=== PATIENT | female | born 1925 | race Caucasian/White ===

== ENCOUNTER 2016-12-15 20:04 | Inpatient (IN) | payer MEDICARE, BC ==
--- NOTE | ~2016-12-15 | HP ---
Unit #: [id number] #: [id number] Patient: ZACHERY NOEL [id number] [address] [address] [id number] I MR#: [id number] NAME: ZACHERY NOEL. ROOM: 85921 Age: 89 Sex: F Admission Date: 12/15/2016 : 1925 Attending Physician: Sunshine Torres M.D. Primary Care Physician: Jaunita Rudd A.P.R.N. HISTORY AND PHYSICAL CHIEF COMPLAINT Abdominal pain. DISCUSSION This is an 89-year-old female with a past medical history of hypertension, dyslipidemia, osteoarthritis, osteoporosis, GERD, history of macular degeneration of eyes, legally blind, glaucoma. She presented to the emergency room with the chief complaint of diffuse abdominal pain. No nausea and no vomiting. No blood in the stool. She said pain started since yesterday. Got worse and she came to the ER. Initially on blood test she was found to have lipase 332, amylase 249, and also CT scan shows ileus with questionable small bowel resection. She had been eventually admitted. She denies fever, chills, cough, dysuria or any other complaints. PAST MEDICAL HISTORY 1. History of small bowel obstruction requiring partial colectomy in the past. 2. Hypertension. 3. Hyperlipidemia. 4. Osteoarthritis. 5. History of osteoporosis. 6. History of depression in the past. 7. History of GERD. 8. History of irritable bowel syndrome. 9. Bilateral macular degeneration of eyes. 10. Legally blind. PAST SURGICAL HISTORY 1. History of right distal ulnar fracture, status post repair. 2. History of colectomy in the past. 3. Tonsillectomy. 4. Cholecystectomy. 5. Appendectomy. 6. Hysterectomy. 7. History of excision of left labial cyst. 8. History of left total hip replacement. FAMILY HISTORY Noncontributory. SOCIAL HISTORY Lives by herself. Denies alcohol. Denies illicit drug use. Unit #: [id number] #: [id number] Patient: ZACHERY NOEL ALLERGIES No known drug allergy. MEDICATION FROM HOME 1. Nifedipine 30 mg daily. 2. Levothyroxine 50 mcg daily. 3. Amlodipine 5 mg daily. 4. Claritin eye drops at bedtime. REVIEW OF SYSTEMS All review of systems negative except for history of presenting illness. PHYSICAL EXAMINATION GENERAL: Elderly female lying in the bed comfortably, currently not in any distress. She is alert, awake, oriented x3 by very hard of hearing. VITAL SIGNS: His current vitals are following: Temperature 97.7, heart rate 102, respiratory rate 15, blood pressure 136/86, oxygen 98% on room air. HEENT: Pupils are equal, react to light and accommodation. Head is normocephalic, atraumatic. Extraocular muscles are intact. NECK: Supple. No JVD. HEART: S1, S2. 2/6 systolic murmur. Skipped beat. LUNGS: Clear to auscultation. ABDOMEN: Bowel sounds positive, diffuse tenderness positive. EXTREMITIES: To inspection normal. No cyanosis, no clubbing, no edema. NEUROLOGIC: No focal neurologic deficit. DIAGNOSTIC STUDIES LABORATORY STUDIES: UA has a cloudy appearance, (1) positive, WBC 10-25. Lactic acid level is 1.4. Chemistry - sodium 140, potassium 3.7, glucose 139, BUN 16, creatinine 0.9. LFT is within normal limits. Lipase 232, amylase 249. CBC - white count 8, hemoglobin 14, hematocrit 43, platelets 197. IMAGING STUDIES: CT scan shows questionable small bowel obstruction versus ileus. ASSESSMENT AND PLAN 1. Questionable small bowel obstruction versus ileus. She has a history of small bowel obstruction in the past. Will keep the patient NPO. IV fluid, morphine, IV Protonix. General surgery, LSA to evaluate. 2. UTI. Start patient on IV Rocephin. 3. Acute pancreatitis, elevated amylase and lipase. IV fluids and pain control. 4. Hypothyroid. 5. Hypertension. 6. Glaucoma, bilateral macular degeneration of eyes, legally blind. 7. Osteoarthritis. 8. History of osteoporosis. 9. History of hard of hearing. 10. Irritable bowel syndrome. 11. DVT prophylaxis. Will place the patient on Lovenox. Dictated by Sunshine Torres M.D. Unit #: [id number] #: [id number] Patient: ZACHERY NOEL Benito ST/magdiel TD: 12/16/2016 06:51 JOB #: [id number] HISTORY AND PHYSICAL Page 1 of 1 X X HISTORY AND PHYSICAL
--- NOTE | ~2016-12-15 | DS ---
Unit #: [id number] #: [id number] Patient: ZACHERY NOEL [id number] [facility]. [address] [address] [id number] I MR#: [id number] NAME: ZACHERY NOEL ROOM: 330 Age: 89 Sex: F Admission Date: 12/15/2016 : 1925 Discharge Date: 12/19/2016 Attending Physician: Karma Millan M.D. Primary Care Physician: Juanita Rudd A.P.R.N. DISCHARGE SUMMARY DIAGNOSIS ON ADMISSION Questionable small bowel obstruction. DIAGNOSES ON DISCHARGE 1. Resolving ileus. 2. Questionable gastroenteritis. 3. Hypertension. 4. Acute Escherichia coli urinary tract infection. 5. Dementia. 6. Hypothyroidism. 7. Partial small bowel obstruction, resolved. DIAGNOSTIC STUDIES LABORATORY: Urine culture revealed E. coli urinary tract infection with greater than 100,000 colony count. The patient's creatinine was 0.5, sodium 140, potassium 3.7. WBC 4.2, hemoglobin 13.1, platelet count 154,000. IMAGING: Patient had CT scan of abdomen done on admission which revealed diffuse prominence of small bowel with scattered air fluid levels. This was nonspecific. Patient had abdominal series done today which revealed decrease in number of gas-filled diluted loops of small bowel with increasing amount of colonic gas suggesting improved or dissolved small bowel obstruction. HOSPITAL COURSE An 89-year-old female was admitted to the hospital with possible small bowel obstruction. Patient was seen by surgery in consultation, who thought that patient had likely ileus. They gradually advanced her diet and patient is tolerating it well. Acute urinary tract infection: The patient is treated with antibiotics and is on nitrofurantoin currently. Dementia: Patient is forgetful. She has increased agitation and has pulled out IV lines since yesterday. Questionable acute pancreatitis: Patient's amylase and lipase levels were elevated on admission but surgery thought that it was nonspecific and patient likely has ileus. Patient has been refusing lab work and pulling out her IVs. Therefore, repeat levels were not done. Today patient is comfortable, is not in any acute distress. Unit #: [id number] #: [id number] Patient: ZACHERY NOEL PHYSICAL EXAMINATION VITAL SIGNS: Reveal temperature of 99.6, pulse is 78 per minute, respiratory rate is 16 per minute, blood pressure is 143/98. HEENT: Revealed no conjunctival congestion. Sclerae is nonicteric. NECK: Supple. Trachea is central. RESPIRATORY: Revealed decreased breath sounds bilaterally. There are no wheezes or crackles. HEART: Regular rate and rhythm. S1, S2. ABDOMEN: Soft, nontender. Bowel sounds are present in all four quadrants. PSYCHIATRIC: Patient is alert to person only. SKIN: Warm and dry. RECOMMENDATIONS ON DISCHARGE Condition stable. Activity as tolerated. MEDICATIONS 1. Imodium 2 mg p.o. q.4 hours p.r.n. for diarrhea. 2. Norvasc 5 mg p.o. daily. 3. Procardia XL 30 mg p.o. daily. 4. Travatan eye drops. 5. Synthroid 50 mcg p.o. daily. 6. Nitrofurantoin 100 mg p.o. b.i.d. for four days. FOLLOWUP Followup with the physician at the facility. Kindly repeat patient's CBC and BMP in one to two days. The patient is agitated and is at high risk for falls. The plan was discussed in detail with patient's daughter and son who stated that patient is not safe alone and they are looking into long-term care. They also stated that patient has diarrhea off and on and was using Lomotil at home. Dictated by... He Macias/rey TD: 12/19/2016 14:00 JOB #: [id number] DISCHARGE SUMMARY Page 1 of 1 X Karma Millan MD X DISCHARGE SUMMARY
--- NOTE | ~2016-12-15 | CT4 ---
[facility] A Service of [facility] RADIOLOGY TEXT RESULTS PATIENT: ZACHERY NOEL LOCATION: [facility] 330-01 : [birth year] UNIT #: [id number] AGE: [address]: Karma Millan MD SEX: F ORDER DR: [id number] [facility] [address] [facility]. [place], [place] [address] [id number] I MR#: [id number] Acc #: [id number] NAME: ZACHERY NOEL. : 1925 SEX: F STUDY DATE/TIME: 12/15/2016 22:21 UNIT: CEDOF ROOM: 96250 STUDY DESCRIPTION: CT Abd and Pelv Wo Cont Attending Physician: Karma Millan M.D. Ordering Physician: Nia Rodriguez M.D. Primary Care Physician: Juanita Rudd A.P.R.N. MEDICAL IMAGING REPORT This report is preliminary unless electronic signature is present EXAM CT abdomen and pelvis without contrast INDICATION Bilateral lower quadrant abdominal pain since this morning. PROCEDURE Unenhanced CT of the abdomen and pelvis. This CT examination was performed with one or more of the following radiation dose reduction techniques: automatic exposure control, adjustment of mA and/or kV according to patient size, and iterative reconstruction. COMPARISON 03/24/2013. FINDINGS ABDOMEN WITHOUT CONTRAST: The included lung bases are clear. Previous cholecystectomy. There is persistent significant dilation of the intra- and extrahepatic bile ducts without evidence for obstructing mass or radiodense stone on this unenhanced study. Stable hepatic cysts. Spleen, adrenal glands, pancreas show no definite abnormality. Sigmoid diverticula without evidence for active complication. There is generalized prominence of small bowel loops with scattered air-fluid levels. No transition point is seen. The appearance was somewhat similar on the previous study. There is no organized abdominal fluid collection. Stable right renal calcifications. PELVIS WITHOUT CONTRAST: No pelvic mass. No aggressive appearing bone lesion. IMPRESSION [facility] A Service of [facility] RADIOLOGY TEXT RESULTS PATIENT: ZACHERY NOEL LOCATION: [facility] 330-01 : [birth year] UNIT #: [id number] AGE: [address]: Karma Millan MD SEX: F ORDER DR: 1. Diffuse prominence of the small bowel with scattered air-fluid levels. There is no discrete transition point seen. This is nonspecific. It could represent small bowel obstruction, but could also represent ileus. Correlate with patient's presenting symptoms. This could be followed with serial radiographs as desired clinically. 2. Other incidental findings detailed above are unchanged from the prior study. Dictated by... Shaka Rose M.D. THIS IS AN ELECTRONICALLY VERIFIED REPORT Shaka Rose M.D. at 12/19/2016 7:24 AM JORI/chloe TD: 12/16/2016 08:24 JOB #: [id number] MEDICAL IMAGING REPORT Page 1 of 1 COPY
--- NOTE | ~2016-12-15 | CR4 ---
[facility] A Service of [facility] RADIOLOGY TEXT RESULTS PATIENT: ZACHERY NOEL LOCATION: [facility] : [birth year] UNIT #: [id number] AGE: [address]: Karma Millan MD SEX: F ORDER DR: [id number] [facility] [address] [facility]. [place], [place] [address] [id number] I MR#: [id number] #: [id number] NAME: ZACHERY NOEL : 1925 SEX: F STUDY DATE/TIME: 12/19/2016901 UNIT: [address] ROOM: [facility] STUDY DESCRIPTION: CR Abdomen Flat Upright or Dec Attending Physician: Karma Millan M.D. Ordering Physician: Karma Millan M.D. Primary Care Physician: Juanita Rudd A.P.R.N. MEDICAL IMAGING REPORT This report is preliminary unless electronic signature is present EXAM Abdomen, supine and upright, 12/19/2016, 0902 hours. CLINICAL HISTORY Abdominal pain since admission to hospital on 12/15/2016. COMPARISON 12/17/2016 FINDINGS Supine and upright views demonstrate clear lung bases. There is no free air. There is gaseous distension of multiple loops of small bowel with definite colonic gas seen. The number of dilated small bowel loops has decreased and the amount of gas in the colon has increased suggesting improvement. IMPRESSION There is decrease in the number of gas-filled dilated loops of small bowel with increasing amount of colonic gas since 12/17/2016 suggesting improving or resolved small bowel obstruction. No free air seen. Dictated by... Yesica Patel M.D. THIS IS AN ELECTRONICALLY VERIFIED REPORT Yesica Patel M.D. at 12/19/2016 2:29 PM KARYN/malissa TD: 12/19/2016 11:01 JOB #: [id number] [facility] A Service of [facility] RADIOLOGY TEXT RESULTS PATIENT: ZACHERY NOEL LOCATION: [facility] 330-01 : [birth year] UNIT #: [id number] AGE: [address]: Karma Millan MD SEX: F ORDER DR: MEDICAL IMAGING REPORT Page 1 of 1 COPY
--- NOTE | ~2016-12-15 | EKG ---
PATIENT: ZACHERY NOEL UNIT #: [id number] Ventricular Rate: 81 BPM Atrial Rate: 81 BPM P-R Interval: 160 ms QRS Duration: 74 ms Q-T Interval: 352 ms QTC Calculation(Bezet): 408 ms P [place]: 87 degrees Calculated R [place]: -23 degrees Calculated T [place]: 35 degrees Diagnosis Line: Normal sinus rhythm Diagnosis Line: Cannot rule out Septal infarct , age undetermined Diagnosis Line: Borderline ECG Diagnosis Line: No previous ECGs available Diagnosis Line: Confirmed by MALA MOCTEZUMA MD ([id number]) on 12/22/2016 Diagnosis Line: 6:30:25 PM INTERPRETING MD: JOSE ELIAS GDUINO
--- NOTE | ~2016-12-15 | CO ---
Unit #: [id number] #: [id number] Patient: ZACHERY NOEL [id number] [address] [address] [id number] I MR#: [id number] NAME: ZACHERY NOEL ROOM: 330 Age: 89 Sex: F Admission Date: 12/15/2016 : 1925 Attending Physician: Karma Millan M.D. Primary Care Physician: Juanita Rudd A.P.R.N. Consultation Date: 12/17/2016 CONSULTATION REPORT REASON FOR CONSULTATION Ileus versus partial small bowel obstruction. HISTORY OF PRESENT ILLNESS This is an 89-year-old lady who is extremely hard of hearing. It is very difficult to obtain the history and part of the history was obtained from the chart. She was doing well until a couple days ago when she developed some severe lower abdominal pain. It has subsided some. The nurses report that her last bowel movement was yesterday, but she denies this. She is not having any nausea at this point and states that she is hungry. PAST MEDICAL HISTORY 1. Hypertension. 2. Elevated lipids. 3. Arthritis. 4. Reflux. 5. Legally blind. PAST SURGICAL HISTORY 1. Exploratory laparotomy with bowel obstruction. 2. Cholecystectomy. 3. Appendectomy. 4. Hysterectomy. 5. Left total hip replacement as well as some other orthopedic procedures. ALLERGIES No known drug allergies. MEDICATIONS Please see med rec list for list of medications. SOCIAL HISTORY She denies any tobacco or alcohol use. FAMILY HISTORY Negative for cancer. REVIEW OF SYSTEMS Unable to be obtained due to her being extremely hard of hearing. PHYSICAL EXAMINATION VITAL SIGNS: Temperature is 98.3, heart rate 64, respiratory rate 20, Unit #: [id number] #: [id number] Patient: ZACHERY NOEL blood pressure 128/73. GENERAL: She is in no acute distress. HEENT: Pupils equal, round, and reactive to light and accommodation. Her extraocular muscles are intact. NECK: Without masses or bruits. LUNGS: Show good breath sounds bilaterally with equal air exchange. CARDIAC: Shows regular rate and rhythm without murmur. ABDOMEN: Soft, nondistended, nontender with no organomegaly. EXTREMITIES: Without any edema or cyanosis. NEUROLOGIC: She is alert and oriented. There are no focal deficits. DIAGNOSTIC STUDIES LABORATORY: Labs yesterday were okay. IMAGING: CT scan done two days ago showed partial small bowel obstruction versus ileus. IMPRESSION Overall impression, this lady likely has an ileus. PLAN Plan is to advance her diet to clears, check some interval plain films, and stimulate a bowel movement. Further recommendations are to follow. Dictated by... Con Villar III, M.D. VCL/rey TD: 12/17/2016 15:14 JOB #: [id number] CONSULTATION REPORT Page 1 of 1 X Con Villar III, MD X CONSULTATION REPORT
--- NOTE | ~2016-12-15 | CR4 ---
[facility] A Service of [facility] RADIOLOGY TEXT RESULTS PATIENT: ZACHERY NOEL LOCATION: [facility] 330- : [birth year] UNIT #: [id number] AGE: [address]: Karma Millan MD SEX: F ORDER DR: [id number] [facility] [address] [facility]. [place], [place] [address] [id number] I MR#: [id number] #: [id number] NAME: ZACHERY NOEL : 1925 SEX: F STUDY DATE/TIME: 12/17/2016 11:00 [facility]OM: [facility] STUDY DESCRIPTION: CR Abdomen Flat Upright or Dec Attending Physician: Karma Millan M.D. Ordering Physician: Con Villar III, M.D. Primary Care Physician: Juanita Rudd A.P.R.N. MEDICAL IMAGING REPORT This report is preliminary unless electronic signature is present EXAM Flat and upright abdominal films. INDICATION Abdominal pain. This has been present since December 15, 2016. Patient had a CT scan performed on December 15 which showed dilatation of the small bowel. FINDINGS On the upright chest radiograph. No free air is seen within the within the diaphragm. Patient has cardiomegaly without evidence of vascular congestion. There is some bibasilar atelectasis. Gaseous distension of small bowel is again noted. This was also noted on the prior examination and I do not think is really significantly changed. This mainly appears to be related to small bowel rather than colon which would be more suggestive of small bowel obstruction. Stable renal parenchymal calcifications are identified within the right upper quadrant and the patient is status post cholecystectomy. Patient is also status post left hip arthroplasty. IMPRESSION Diffuse gaseous distension of small bowel is again seen. As discussed on prior examination, this potentially may reflect small bowel obstruction, especially given relative paucity of gas identified within the colon. Overall, the level of dilatation I do not think is significantly changed when compared to the December 15 examination. Dictated by... Belen Rodriguez M.D. THIS IS AN ELECTRONICALLY VERIFIED REPORT Belen Rodriguez M.D. at 12/20/2016 1:25 PM AFF/jt [facility] A Service of [facility] RADIOLOGY TEXT RESULTS PATIENT: ZACHERY NOEL LOCATION: [facility] 330-01 : [birth year] UNIT #: [id number] AGE: [address]: Karma Millan MD SEX: F ORDER DR: TD: 12/17/2016 19:09 JOB #: [id number] MEDICAL IMAGING REPORT Page 1 of 1 COPY
--- NOTE | ~2016-12-15 | DS ---
Unit #: [id number] #: [id number] Patient: ZACHERY NOEL [id number] [address] [place], [place] [address] [id number] I MR#: [id number] NAME: ZACHERY NOEL. ROOM: 330 Age: 89 Sex: F Admission Date: 12/15/2016 : 1925 Discharge Date: Attending Physician: Karma Millan M.D. Primary Care Physician: Juanita Rudd A.P.R.N. DISCHARGE SUMMARY ADDENDUM The patient's discharge was held as we were waiting for her bed in rehab. The patient has a bed at (1) . Earlier this morning the patient had a 7-beat run, which nursing staff thought was nonsustained ventricular tachycardia. When cardiology saw the patient, they assume patient has paroxysmal atrial fibrillation or flutter with rapid ventricular rate. They discontinued the patient's Procardia, Norvasc and started on Lopressor, and they thought there is no further workup needed at this time and patient can be transferred to senior care. No anticoagulation was initiated because of the patient's increased risk of fall due to advanced age. Therefore, patient will be discharged to the rehab facility. The patient's medications on discharge are as per medication reconciliation form, and please make note that the patient's Procardia and Norvasc have been discontinued and the patient is discharged on Metoprolol 50 mg p.o. b.i.d. Dictated by... He Macias/joey TD: 12/21/2016 13:47 JOB #: [id number] DISCHARGE SUMMARY Page 1 of 1 X Karma Millan MD X DISCHARGE SUMMARY
--- NOTE | ~2016-12-15 | CO ---
Unit #: [id number] #: [id number] Patient: ZACHERY NOEL [id number] [address] [place], [place] [address] [id number] MR#: [id number] NAME: ZACHERY NOEL. ROOM: 330 Age: 89 Sex: F Admission Date: 12/15/2016 : 1925 Attending Physician: Karma Millan M.D. Primary Care Physician: Juanita Rudd A.P.R.N. Consultation Date: 12/21/2016 CONSULTATION REPORT REASON FOR CONSULTATION Arrhythmia. REQUESTING PHYSICIAN FOR CONSULTATION Dr. Millan. HISTORY OF PRESENT ILLNESS The patient is an 89-year-old female with history of hypertension, hyperlipidemia, osteoarthritis, osteoporosis, GERD, macular degeneration, glaucoma, legal blindness who presented to the emergency department on December 15, 2016, with complaints of abdominal pain. The patient was admitted and treated for possible SBO versus ileus, UTI, and acute pancreatitis. She was initially kept NPO and treated with IV fluids and antibiotics. The patient was noted to have an episode of tachycardia on the monitor and cardiology was consulted. Review of the monitor strip shows atrial flutter on December 19, 2016 with RVR, rates of 130s. On December 21, 2016, the patient had an atrial fibrillation with RVR for approximately 6 seconds and the rate was around 120. The patient denies any past cardiac history such as SC, CAD, or stents. She also denies any problems with chest pain, dyspnea on exertion, orthopnea, PND, palpitations, tachycardia, dizziness, or syncope. The patient states that she feels much better and wishes to be released from the hospital. PAST MEDICAL HISTORY 1. Hypertension. 2. Hyperlipidemia. 3. Osteoarthritis. 4. Osteoporosis. 5. GERD. 6. Macular degeneration. 7. Legal blindness. 8. Glaucoma. 9. History of SBO requiring partial colectomy. 10. History of depression. 11. History of irritable bowel syndrome. PAST SURGICAL HISTORY 1. Cholecystectomy. 2. Tonsillectomy. 3. Appendectomy. 4. Hysterectomy. 5. History of left labial cyst removal. 6. History of left total hip replacement. 7. History of right distal ulna fracture, status post repair. Unit #: [id number] #: [id number] Patient: ZACHERY NOEL 8. History of colectomy. FAMILY HISTORY There is no family history of premature coronary artery disease. SOCIAL HISTORY She lives alone. She denies alcohol or illicit drug use. She had a history of smoking but quit in the 1960s. CURRENT MEDICATIONS 1. Protonix 40 mg daily. 2. Macrodantin 100 mg twice daily. 3. Xalatan one drop nightly both eyes. 4. Norvasc 5 mg daily. 5. Procardia XL 30 mg daily. 6. Lovenox 40 mg daily. 7. Synthroid 0.05 mg daily. ALLERGIES No known drug allergies. REVIEW OF SYSTEMS GENERAL: Patient denies recent fevers, chills, or flu-like symptoms. HEENT: She is legally blind and very hard of hearing. Denies frequent headaches. CARDIAC: As above. Again, denies chest pain, palpitations, tachycardia, dizziness, or syncope. PULMONARY: Denies cough or hemoptysis. ABDOMEN: Abdominal pain which has improved. Chronic diarrhea. No noted melena. GENITOURINARY: No hematuria. EXTREMITIES: Occasional ankle swelling. NEUROLOGIC: No dizziness or syncope. MUSCULOSKELETAL: Chronic joint pain due to osteoarthritis. DIAGNOSTIC STUDIES LABORATORY: Troponin less than 0.03. White blood cells 5.1, hemoglobin 15.1, hematocrit 46.7, and platelets 178,000. Sodium 140, potassium 3.7, chloride 108, CO2 of 25, glucose 125, BUN 5, creatinine 0.5. PHYSICAL EXAMINATION VITAL SIGNS: Blood pressure is 122 to up to 177 systolic over 72 to 112 diastolic. Heart rate 82 and regular. Respirations 18 and regular. Temperature is 97.7. O2 saturation 98% on room air. GENERAL: Patient is a well-developed, well-nourished elderly female in no acute distress. Awake, alert, and oriented x3. Very hard of hearing. Legally blind. NECK: No JVD or carotid bruits. SPINE: Positive for kyphosis. CARDIAC: Regular rate and rhythm without murmur, gallop, rub, or lift appreciated. PULMONARY: Clear to auscultation bilaterally without wheezes, rhonchi, rales, accessory muscle use. ABDOMEN: Soft, nontender, nondistended. Positive bowel sounds x4. EXTREMITIES: No clubbing, cyanosis, or edema. NEUROLOGIC: Awake and oriented x3. ASSESSMENT AND PLAN Unit #: [id number] #: [id number] Patient: ZACHERY NOEL 1. Paroxysmal atrial fibrillation/atrial flutter with rapid ventricular response. 2. Hypertension. 3. Hyperlipidemia. 4. Gastroesophageal reflux disease. 5. Acute urinary tract infection. 6. Chronic diarrhea/irritable bowel syndrome. 7. Resolving ileus versus gastroenteritis, much improved. Ms. Noel's case was discussed with Dr. Carmichael. We will check a TSH. We will also discontinue the Norvasc and Procardia and start metoprolol tartrate 50 mg b.i.d. for blood pressure and heart rate control. No anticoagulation at this time due to dementia and fall risk. The patient is to be released to the senior care and can be released today from a cardiac standpoint. Dictated by... Maryuri José P.A.CLauren for He Thapa TD: 12/21/2016 14:09 JOB #: [id number] CONSULTATION REPORT Page 1 of 1 X X CONSULTATION REPORT
--- NOTE | ~2016-12-15 | DS ---
Unit #: [id number] #: [id number] Patient: ZACHERY NOEL [id number] [address] [address] [id number] MR#: [id number] NAME: ZACHERY NOEL. ROOM: 330 Age: Sex: F Admission Date: 12/15/2016 : 1925 Discharge Date: 12/21/2016 Attending Physician: Karma Millan M.D. Primary Care Physician: Juanita Rudd A.P.R.N. DISCHARGE SUMMARY ADDENDUM I just called and spoke with patient's daughter, who is agreeable for patient to go to rehab. She also stated that patient has chronic diarrhea at home which she attributed to cholecystectomy and her partial colectomy. She stated that patient was taking Lomotil at home as Imodium does not work. Therefore, we will discharge patient to rehab facility on Lomotil and I will write a prescription for that. Dictated by... He Macias/rey TD: 12/19/2016 15:33 JOB #: [id number] DISCHARGE SUMMARY Page 1 of 1 X Karma Millan MD X DISCHARGE SUMMARY
[~2016-12-15 20:04] MED LIST: AMLODIPINE BESYL5 MG PO; ATIVAN INJ; ATIVAN PO; BENTYL20 MG PO; CENTRUM PO; CIPRO PO; DARVOCET-N 1001 TAB; DARVOCET-N 1001 TAB PO; DEXFOL PO; FAMOTIDINE PO; FLAGYL PO; LEVOTHYROXINE50 MCG PO; LISINOPRIL; LOMOTIL WHITE2.5 M1 PO; MEDROL; NABUMETONE PO; NIFEDIPINE XR PO; PERCOCET5/325 PO; POSTURE600 MG PO; PRAVACHOL; PRILOSEC; RITE-AID PHARMACY; SENNA PO; TRAVOPROST OU; VICODIN 5/500 T1 TAB; ZOCOR PO; ZOFRAN ODT4 MG PO; ZOLOFT
[2016-12-15] MEDS ORDERED: AMLODIPINE BESYL5 MG PO (20:17)
[2016-12-15] MEDS ORDERED: NIFEDIPINE ER30 MG PO (20:17)
[2016-12-15] MEDS ORDERED: LEVOTHYROXINE50 MCG PO (20:17)
[2016-12-15] MEDS ORDERED: LOMOTIL 2.5-0.1 EACH PO (20:18)
[2016-12-15] MEDS ORDERED: TRAVATAN Z5 ML OU (20:18)
[2016-12-15 21:04] LABS: BASOPHIL% 0.4 % (0-2.5); EOSINOPHIL% 0.2 % (0.0-7.0); HEMATOCRIT 43.8 % (35.0-45.0); HEMOGLOBIN 14.3 gm/dL (12.0-16.0); LYMPHOCYTE# 1.2 X10e3 (1.0-3.5); LYMPHOCYTE% 14.9 % (17.0-45.0); MEAN CELL VOLUME 94.8 FL (83-96); MEAN CORPUSCULAR HEMOGLOBIN 30.9 PG (28-34); MEAN CORPUSCULAR HGB CONC 32.7 g/dL (30-36); MEAN PLATELET VOLUME 11.1 FL (6.5-11.5); MONOCYTE# 0.4 X10e3 (0-1.0); MONOCYTE% 4.5 % (3.0-12.0); NEUTROPHIL# 6.5 X10e3 (1.5-7.1); PLATELET COUNT 197 X10e3 (140-420); RED BLOOD COUNT 4.62 X10e (3.90-5.30); RED CELL DISTRIBUTION WIDTH 14.4 % (11.0-15.5); WHITE BLOOD COUNT 8.1 X10e3 (4.0-10.5)
[2016-12-15 21:05] LABS: DIFF IND NO
[2016-12-15 21:38] LABS: ALBUMIN SERUM 4.4 g/dL (3.5-5.0); BILIRUBIN, DIRECT 0.1 mg/dL (0.0-0.2); BILIRUBIN,INDIRECT 0.8 mg/dL (0.0-0.9); BILIRUBIN,TOTAL 0.9 mg/dL (0.2-2.0); BUN/CREATININE RATIO 17.77; CALCIUM SERUM 9.5 mg/dL (8.4-10.2); CREATININE SERUM 0.9 mg/dL (0.6-1.4); GLOM FILT RATE Estimated 56.7 mL/min (>60); POTASSIUM 3.7 mmol/L (3.5-5.1); PROTEIN TOTAL SERUM 7.4 g/dL (6.0-8.3)
[2016-12-15 21:48] LABS: URINE SOURCE CLEAN CATCH
[2016-12-15 21:58] LABS: URINE APPEARANCE CLOUDY; URINE BILIRUBIN NEG (NEG); URINE BLOOD NEG (NEG); URINE COLOR DK YELLOW; URINE GLUCOSE NEG (NEG); URINE KETONE TRACE (NEG); URINE LEUKOCYTE ESTERASE 3+ (NEG); URINE NITRATE NEG (NEG); URINE PROTEIN 1+ (NEG); URINE SPECIFIC GRAVITY 1.019 (1.003-1.035)
[2016-12-15 22:01] LABS: CULTURE INDICATED? YES; URINE BACTERIA AUWI 4+ (NEGATIVE); URINE SQUAMOUS EPITHELIAL CELL FEW /[HPF]
[2016-12-15 22:23] LABS: URBCS1 AUWI 0-2 /[HPF] (0-2)
[2016-12-16 08:42] LABS: BASOPHIL% 0.4 % (0-2.5); EOSINOPHIL# 0.1 X10e3 (0-0.7); EOSINOPHIL% 1.3 % (0.0-7.0); HEMATOCRIT 37.8 % (35.0-45.0); LYMPHOCYTE# 1.4 X10e3 (1.0-3.5); MEAN CELL VOLUME 96.2 FL (83-96); MEAN CORPUSCULAR HEMOGLOBIN 31.2 PG (28-34); MEAN CORPUSCULAR HGB CONC 32.4 g/dL (30-36); MEAN PLATELET VOLUME 10.3 FL (6.5-11.5); MONOCYTE# 0.4 X10e3 (0-1.0); MONOCYTE% 5.6 % (3.0-12.0); NEUTROPHIL# 5.6 X10e3 (1.5-7.1); NEUTROPHIL% 74.7 % (40-75); PLATELET COUNT 147 X10e3 (140-420); RED BLOOD COUNT 3.93 X10e (3.90-5.30); RED CELL DISTRIBUTION WIDTH 14.4 % (11.0-15.5); WHITE BLOOD COUNT 7.5 X10e3 (4.0-10.5)
[2016-12-16 08:43] LABS: HEMOGLOBIN 12.3 gm/dL (12.0-16.0)
[2016-12-16 08:44] LABS: DIFF IND NO
[2016-12-16 10:01] LABS: CALCIUM SERUM 8.4 mg/dL (8.4-10.2); CREATININE SERUM 0.5 mg/dL (0.6-1.4); GLOM FILT RATE Estimated 85.8 mL/min (>60); POTASSIUM 5.1 mmol/L (3.5-5.1)
[2016-12-17 09:34] LABS: HEMATOCRIT 41.4 % (35.0-45.0); HEMOGLOBIN 13.1 gm/dL (12.0-16.0); MEAN CELL VOLUME 96.5 FL (83-96); MEAN CORPUSCULAR HEMOGLOBIN 30.6 PG (28-34); MEAN CORPUSCULAR HGB CONC 31.8 g/dL (30-36); MEAN PLATELET VOLUME 11.2 FL (6.5-11.5); RED BLOOD COUNT 4.29 X10e (3.90-5.30); RED CELL DISTRIBUTION WIDTH 14.4 % (11.0-15.5); WHITE BLOOD COUNT 4.2 X10e3 (4.0-10.5)
[2016-12-17 10:01] LABS: CALCIUM SERUM 8.6 mg/dL (8.4-10.2); CREATININE SERUM 0.5 mg/dL (0.6-1.4); GLOM FILT RATE Estimated 85.8 mL/min (>60); POTASSIUM 3.7 mmol/L (3.5-5.1)
[2016-12-19] MEDS ORDERED: NITROFURANTOIN100 M3 PO (21:39)
[2016-12-21 09:19] LABS: BASOPHIL# 0.1 X10e3 (0-0.3); BASOPHIL% 1.1 % (0-2.5); DIFF IND NO; EOSINOPHIL# 0.1 X10e3 (0-0.7); EOSINOPHIL% 2.1 % (0.0-7.0); HEMATOCRIT 46.7 % (35.0-45.0); HEMOGLOBIN 15.1 gm/dL (12.0-16.0); LYMPHOCYTE% 38.8 % (17.0-45.0); MEAN CELL VOLUME 95.7 FL (83-96); MEAN CORPUSCULAR HGB CONC 32.4 g/dL (30-36); MEAN PLATELET VOLUME 11.3 FL (6.5-11.5); MONOCYTE# 0.4 X10e3 (0-1.0); NEUTROPHIL# 2.6 X10e3 (1.5-7.1); PLATELET COUNT 178 X10e3 (140-420); RED BLOOD COUNT 4.88 X10e (3.90-5.30); WHITE BLOOD COUNT 5.1 X10e3 (4.0-10.5)
[2016-12-21 10:12] LABS: BUN/CREATININE RATIO 18.57; CALCIUM SERUM 9.5 mg/dL (8.4-10.2); CREATININE SERUM 0.7 mg/dL (0.6-1.4); GLOM FILT RATE Estimated 76.8 mL/min (>60); MAGNESIUM 2.1 mg/dL (1.6-3.0); POTASSIUM 3.7 mmol/L (3.5-5.1)
== END 2016-12-21 16:30 | DRG 389 ==
LOC: CED 20:04 → CEDOF 23:00 → C3A PCU 23:00 → CED 23:16 → CEDOF 23:16 → C3A PCU 12-16 14:33
PROVIDERS: Emergency Medicine; Internal Medicine
DX: K56.7 Ileus, unspecified (principal); I48.92 Unspecified atrial flutter; N39.0 Urinary tract infection, site not specified; E03.9 Hypothyroidism, unspecified; I10 Essential (primary) hypertension; H40.9 Unspecified glaucoma; H35.30 Unspecified macular degeneration; M19.90 Unspecified osteoarthritis, unspecified site; K58.9 Irritable bowel syndrome, unspecified; H54.8 Legal blindness, as defined in USA; I48.0 Paroxysmal atrial fibrillation; Z90.710 Acquired absence of both cervix and uterus; Z96.642 Presence of left artificial hip joint; Z90.49 Acquired absence of other specified parts of digestive tract; M81.0 Age-related osteoporosis without current pathological fracture; B96.20 Unspecified Escherichia coli [E. coli] as the cause of diseases classified elsewhere; K52.9 Noninfective gastroenteritis and colitis, unspecified
CPT/HCPCS: 36415; 51701; 74020; 74176; 80048; 80076; 81003; 82150; 82550; 83605; 83690; 83735; 84443; 84484; 85025; 85027; 87086; 87088; 87186; 93005; 96361; 96365; 96375; 99285; C9113; J0696; J1650; J2270; J2405